=== PATIENT | female | born 1995 | race African-American/Black ===

== ENCOUNTER → 2018-07-17 13:32 | Day surgery (SDC) | payer OTHER ==
[~2018-07-17 13:32] MED LIST: Buffered Lidocaine 0.9% SYRIN* 5 ML/SYR SYRINGE INTRADERM ONE; Buffered Lidocaine 0.9% SYRIN* 5 ML/SYR SYRINGE ONE; Bupivacaine 0.25% SDV PF* 10 ML VIAL INJ ONE; Bupivacaine 0.5% W/EPI SDV* 30 ML VIAL ONE; Dexamethasone IV* 4 MG/ML 1 ML (4 MG) IV SLOW PU ONE; Dexamethasone IV* 4 MG/ML 1 ML (4 MG) ONE; DiMENhydriNATE IV* 50 MG/ML VIAL IV PUSH PRN; Famotidine IV* 10 MG/ML 2 ML (20 mg) IV ONE; Famotidine IV* 10 MG/ML 2 ML (20 mg) ONE; HYDROcodone/ACETAMIN 5-325 MG* 1 TAB PO PRN; Lidocaine 1% INJ* 10 MG/ML 30 ML SDV ONE; Lidocaine 2% PF * 5 ML VIAL ONE; Midazolam* 1 MG/ML 5 ML VIAL (5 MG) ONE; Naloxone* 0.4 MG/ML 1 ML VIAL IV PRN; Ondansetron INJ* 2 MG/ML VIAL ONE; Propofol* 10 MG/ML 20 ML BTL ONE; fentaNYL* 50 MCG/ML 2 ML VIAL (100 MCG VIAL) IV PRN; fentaNYL* 50 MCG/ML 2 ML VIAL (100 MCG VIAL) ONE; oxyCODONE/Acetamin 5/325 MG* TAB PO PRN
--- NOTE | 2018-07-17 16:54 | PN ---
Progress Note - Progress Note Date of Service: 07/17/18 Note: Surgery Dr. Washington asked me to take over care of Ms. Ch due to insurance issues. I have met with and examined Ms. Ch, and I agree that she should have this lump, which has been discordantly evaluated by imaging and FNA, removed. I explained the nature of excision of right breast lump. She understands and agrees to proceed. SYDNEEFophong
[2018-07-17 19:15] VITALS: BP 111/70
--- NOTE | 2018-07-18 16:58 | OP ---
CC: Em Tejada at [facility] DATE OF OPERATION: 07/17/18 - SDS DATE OF : 89 SURGEON: Caitlin Porter MD TITLE ATTORNEY: Dr. Washington. PRE-OP DIAGNOSIS: Right breast lump. POST-OP DIAGNOSIS: Right breast lump. OPERATIVE PROCEDURE: Right breast excision of lump. DESCRIPTION OF PROCEDURE: Ms. Ch is a 22-year-old woman who presented to the office with a palpable lump. This was found on ultrasound to be suspicious and although needle aspiration was benign, it was a discordant result prompted the plan for surgical intervention. She was brought to the operating room, placed on the OR table in supine position and given IV sedation. The right breast was prepped and draped in usual sterile fashion. After infiltrated with local anesthetic, a curvilinear incision was made over the mass and subcutaneous tissue was divided with electro-cautery to completely incise the mass of tissue. It was marked in the usual fashion and handed off as a specimen and then hemostasis was assured with electrocautery. Once this appeared adequate, additional local was instilled into the wound and closure was accomplished with 3-0 Vicryl in the subcutaneous layer and the skin was closed with 4-0 Prolene in a subcuticular fashion. Steri-Strips and a dry sterile dressing were applied. All sponge and instrument counts were correct. The patient tolerated the procedure well and was transferred to recovery in a stable condition. [id number] #: [id number] MTDD
== END | disposition home or self-care (01) ==
LOC: OR 13:32
PROVIDERS: ATTEND Surgery
DX: N63.10 Unspecified lump in the right breast, unspecified quadrant (principal)
CPT/HCPCS: 81025; 88307; J1100; J2250; J2405; J2704; J3010; J3490

== ENCOUNTER 2018-12-05 22:04 | Emergency (ER) | payer OTHER ==
[2018-12-06] MEDS ORDERED: NS 0.9% 1000 ML** 1,000 ML IV.FLUID IV ONE (00:24)
--- NOTE | 2018-12-06 00:30 | ED ---
Shortness of Breath - HPI Summary HPI Summary: Pt is a 23 y/o F presenting to the ED with a chief complaint of SOB. She states about one week ago she had back pain, and during the week it developed into weakness and SOB on exertion. In the middle of the week, the back pain went away , but she developed fevers, bodyaches, nonproductive cough, and diaphoresis at night. She also reports some abd pain and decreased appetite. She denies CP. She also states she went on a recent trip to [place] where she was in the [facility]. - History of Current Complaint Chief Complaint: EDWeakness Time Seen by Provider: 12/06/18 00:13 Hx Obtained From: Patient Onset/Duration: Sudden Onset, Lasting Days, Still Present Timing: Constant Current Severity: Moderate Dyspnea At: Exertion Aggrevating Factors: Movement Alleviating Factors: Other - rest Associated Signs & Symptoms: Cough (Nonproductive), Fever, Diaphoresis - at night - Allergy/Home Medications Allergies/Adverse Reactions: Allergies Allergy/AdvReac Type Severity Reaction Status Date / Time No Known Allergies Allergy Verified 12/05/18 22:14 PMH/Surg Hx/FS Hx/Imm Hx Previously Healthy: Yes Endocrine/Hematology History: Reports: Hx Anemia Sensory History: Reports: Hx Contacts or Glasses - GLASSES Denies: Hx Hearing Aid Opthamlomology History: Reports: Hx Contacts or Glasses - GLASSES Infectious Disease History: No Infectious Disease History: Denies: Traveled Outside the in Last 30 Days - Family History Known Family History: Negative: Diabetes - Social History Alcohol Use: Rare Hx Substance Use: No Substance Use Type: Reports: None Hx Tobacco Use: No Smoking Status (MU): Never Smoked Tobacco Have You Smoked in the Last Year: No Review of Systems Positive: Fever, Skin Diaphoresis Negative: Chest Pain Positive: Shortness Of Breath, Cough Positive: Abdominal Pain, Other - decreased appetite Positive: Myalgia - back pain, bodyaches All Other Systems Reviewed And Are Negative: Yes Physical Exam - Summary Physical Exam Summary: Appearance: Well-appearing, Well-nourished, lying in bed comfortably Skin: Warm, dry, no obvious rash Eyes: sclera anicteric, no conjunctival pallor ENT: mucous membranes moist, pharynx appears normal Neck: Supple, nontender Respiratory: Clear to auscultation, no signs of respiratory distress Cardiovascular: Normal S1, S2. No murmurs. Normal distal pulses in tibial and radial bilaterally. Abdomen: Soft, nontender, normal active bowel sounds present Musculoskeletal: Normal, Strength/ROM Intact Neurological: A&Ox3, awake and alert, mentation is normal, speech is fluent and appropriate Psychiatric: affect is normal, does not appear anxious or depressed Triage Information Reviewed: Yes Vital Signs On Initial Exam: Initial Vitals Temp Pulse Resp BP Pulse Ox 100.3 F 103 18 112/82 98 12/05/18 22:12 12/05/18 22:12 12/05/18 22:12 12/05/18 22:12 12/05/18 22:12 Vital Signs Reviewed: Yes Diagnostics - Vital Signs Vital Signs Temp Pulse Resp BP Pulse Ox 12/05/18 22:12 100.3 F 103 18 112/82 98 - Laboratory Result Diagrams: 12/06/18 00:40 12/06/18 00:40 Lab Statement: Any lab studies that have been ordered have been reviewed, and results considered in the medical decision making process. - Radiology CXR Radiology Interpretation Completed By: ED Physician Summary of Radiographic Findings: L perihilar infiltrate. Pending official radiology report. Course/Dx - Course Course Of Treatment: Pt is a 23 y/o F presenting to the ED with a chief complaint of SOB. She states about one week ago she had back pain, and during the week it developed into weakness and SOB on exertion. In the middle of the week, the back pain went away, but she instead had fevers, bodyaches, nonproductive cough, and diaphoresis at night. She also reports some abd pain and decreased appetite. She denies CP. Her Influenza A&B tests came back negative. CXR shows L perihilar infiltrate, pending official radiology report. The pt will be sent home with a dx of pneumonia, and she is agreeable with this plan. - Diagnoses Provider Diagnoses: Pneumonia Discharge - Sign-Out/Discharge Documenting (check all that apply): Patient Departure Patient Received Moderate/Deep Sedation with Procedure: No - Discharge Plan Condition: Good Disposition: HOME Prescriptions: Azithromycin TAB* [Zithromax TAB (Z-YARELI) 250 mg #6 tabs] 250 mg PO DAILY #4 tab Patient Education Materials: Pneumonia (ED) Referrals: Em Tejada NP [Primary Care Provider] - Additional Instructions: It may take several days on the antibiotic to feel like you are starting to improve, and several week before you get all your strength back and get back to normal. However, if you are worsening that is not expected and we would want to see you back here. - Billing Disposition and Condition Condition: GOOD Disposition: Home - Attestation Statements Document Initiated by Bindu: Yes Documenting Scribe: Ying Mejia Provider For Whom Bindu is Documenting (Include Credential): Arun Malave MD. Scribe Attestation: I, Ying Mejia, scribed for Arun Malave MD. on 12/06/18 at 0626. Scribe Documentation Reviewed: Yes Provider Attestation: The documentation as recorded by the Ying rodriguez accurately reflects the service I personally performed and the decisions made by me, Arun Malave MD. Status of Scribe Document: Viewed
[2018-12-06 01:01] LABS: Urine Appearance Clear; Urine Bilirubin Negative (Negative); Urine Blood Negative (Negative); Urine Color Yellow; Urine Glucose Negative (Negative); Urine Ketones Trace (Negative); Urine Nitrite Negative (Negative); Urine Protein Negative (Negative); Urine Specific Gravity 1.021 (1.010-1.030); Urine Urobilinogen Positive (Negative)
[2018-12-06 01:05] LABS: Influenza A Molecular NEGATIVE (Negative); Influenza B Molecular NEGATIVE (Negative)
[2018-12-06 01:06] LABS: Albumin 4.3 g/dL (3.2-5.2); BUN/Creatinine Ratio 10.3 (8-20); C Reactive Protein 81.04 mg/L (<8.01); Calcium 8.8 mg/dL (8.6-10.3); EGFR African American 127.6 (>60); EGFR Non-African American 105.4 (>60); Globulin 4.1 g/dL (2-4); Potassium 3.5 mmol/L (3.5-5.0); Total Bilirubin 0.4 mg/dL (0.2-1.0); Total Protein 8.4 g/dL (6.4-8.9)
[2018-12-06 01:29] LABS: ABS Basophils 0 10^3/ul (0-0.2); ABS Eosinophils 0 10^3/ul (0-0.6); ABS Lymphocytes 1.5 10^3/ul (1.0-4.8); ABS Monocytes 0.5 10^3/ul (0-0.8); ABS Neutrophils 4.2 10^3/ul (1.5-7.7); ABS Nucleated RBC 0 10^3/ul; Eosinophil % 0.3 %; Hematocrit 36 % (33-41); Hemoglobin 12.2 g/dL (12.0-16.0); Lymphocyte % 23.6 %; Mean Corpuscular HGB Conc 34 g/dL (31-36); Mean Corpuscular Hemoglobin 29 pg (27-31); Mean Corpuscular Volume 86 fL (80-97); Mean Platelet Volume 9.9 fL (7.4-10.4); Nucleated Red Blood Cells % 0.1; Platelet Count 227 10^3/uL (150-450); Red Blood Count 4.23 10^6 /uL (3.70-4.87); Red Cell Distribution Width 14 % (10.5-15); White Blood Count 6.2 10^3/uL (3.5-10.8)
[2018-12-06] MEDS ORDERED: Azithromycin TAB* 250 MG PO ONE (02:09)
[2018-12-06 02:49] VITALS: BP 112/80
== END 2018-12-06 02:46 | disposition home or self-care (01) ==
LOC: ED 22:04
DX: J18.9 Pneumonia, unspecified organism (principal)
CPT/HCPCS: 36415; 71046; 80053; 81003; 83605; 85025; 86140; 87040; 96360; 96361; 99283; A9270-GY